=== PATIENT | male | born 1990 | race Caucasian/White ===

== ENCOUNTER 2017-11-21 11:54 | Day surgery (SDC) | payer OTHER ==
[~2017-11-21] VITALS: Ht 172.7 cm; Wt 77.0 kg
[2017-11-21 12:15] VITALS: BP 115/71; PULSE 76; TEMP 98.6
[2017-11-21] MEDS ORDERED: ANTI-DIARRHEAL2 MG PO (12:19)
[2017-11-21] MEDS ORDERED: PROTONIX20 MG PO (12:19)
[2017-11-21] MEDS ORDERED: GAS RELIEF80 MG PO (12:20)
[2017-11-21] MEDS ORDERED: LEVBID0.375 MG PO (12:20)
[2017-11-21 14:20] VITALS: BP 124/63; PULSE 85; TEMP 98
[2017-11-21 14:35] VITALS: BP 127/70; PULSE 79
[2017-11-21 14:50] VITALS: BP 128/71; PULSE 79
[2017-11-21 17:03] VITALS: BP 97/62; PULSE 64
== END 2017-11-21 15:03 | disposition home or self-care (01) ==
LOC: SDCO 11:54
DX: K29.30 Chronic superficial gastritis without bleeding (principal); R10.84 Generalized abdominal pain; R19.7 Diarrhea, unspecified; K64.0 First degree hemorrhoids
CPT/HCPCS: OP; J2250; J3010; J7030